=== PATIENT | female | born 1935 | race Caucasian/White ===

== ENCOUNTER 2016-10-25 11:10 | Emergency (ER) | payer MEDICARE ==
[~2016-10-25] VITALS: Ht 152.4 cm; Wt 62.0 kg
[~2016-10-25 11:10] MED LIST: CALCCHW25 PO; OXYC1SOL5 PO; RIVA10 PO; TAB-TAB PO; Z.0.COMMODE-3:1; Z.0.WALKERFRONT
[2016-10-25 11:19] VITALS: BP 157/95; PULSE 120; RESP 20; TEMP 98.3; O2SAT 96
--- NOTE | 2016-10-25 11:31 | PD ---
HPI Chief Complaint: Injury Time Seen by Provider: 11:22 Travel History International Travel<30 days: No Contact w/Intl Traveler<30days: No Traveled to known affect area: No History of Present Illness HPI 81-year-old female with chief complaint of left lateral ankle pain since last night. Patient reports while walking she ran into the leg of a chair which caused her to twist the ankle and she fell to the ground. She denies head injury or loss of consciousness. She reports the pain is localized to the left lateral ankle, nonradiating, aching, worse with weightbearing and movement, relieved with rest, severity 4/10. she denies numbness/tingling/weakness of the extremity. She denies any other injury. PFSH Past Medical History Arthritis: Yes Blood Disorders: No Cancer: No Cardiovascular Problems: No Diabetes: No Diminished Hearing: No Endocrine: No Genitourinary: No Hepatitis: No Hiatal Hernia: Yes Immune Disorder: No Musculoskeletal: Yes (ARTHRITIS, OSTEOPOROSIS) Neurologic: No Psychiatric: No Reproductive: No Respiratory: No Thyroid Disease: No Past Surgical History Abdominal Surgery: Yes (APPY) AICD: No Gynecologic Surgery: Yes ( RIGHT OVARIAN CYSTECTOMY) Joint Replacement: No Pacemaker: No Social History Alcohol Use: Yes (1-2 SERA DAILY) Tobacco Use: No Substance Use: No Allergies-Medications (Allergen,Severity, Reaction): Coded Allergies: Caseinates (Unverified Allergy, Severe, SEVERE DIARRHEA, 02/10/15) Dairy (Verified Allergy, Severe, 02/21/15) CASEIN INTOLERANCE Gluten (Verified Allergy, Severe, diarrhea, 02/21/15) Neosporin (Verified Allergy, Mild, 02/10/15) Processed Meats (Verified Allergy, Mild, 02/10/15) Reported Meds & Prescriptions Reported Meds & Active Scripts Active Review of Systems Except as stated in HPI: all other systems reviewed are Neg General / Constitutional: No: Fever Eyes: No: Visual changes HENT: No: Headaches Cardiovascular: No: Chest Pain or Discomfort Respiratory: No: Shortness of Breath Gastrointestinal: No: Abdominal Pain Genitourinary: No: Dysuria Musculoskeletal: Positive: Pain (left ankle) Skin: No Rash Neurologic: No: Weakness Physical Exam Narrative GENERAL: Well-nourished, well-developed patient. SKIN: Focused skin assessment warm/dry. HEAD: Normocephalic. EYES: No scleral icterus. No injection or drainage. NECK: Supple, trachea midline. No JVD or lymphadenopathy. CARDIOVASCULAR: Regular rate and rhythm without murmurs, gallops, or rubs. RESPIRATORY: Breath sounds equal bilaterally. No accessory muscle use. GASTROINTESTINAL: Abdomen soft, non-tender, nondistended. MUSCULOSKELETAL: No cyanosis. LLE: Notable swelling to the left lateral malleolus, no deformity, the ankle is stable, normal sensation, 2+ distal pulses. BACK: Nontender without obvious deformity. No CVA tenderness. Data Data Last Documented VS Vital Signs Date Time Temp Pulse Resp B/P Pulse Ox O2 Delivery O2 Flow Rate FiO2 10/25/16 11:19 98.3 120 20 157/95 96 Orders Ankle, Complete ([id number]) (10/25/16 ) [facility] Medical Decision Making Medical Screen Exam Complete: Yes Emergency Medical Condition: Yes Differential Diagnosis distal fibular fx, ankle sprain, contusion Narrative Course 81-year-old female with chief complaint of left ankle pain. Patient reports she contused the area on the leg of the chair causing her to twist the ankle and fall to the ground. She denies head injury or loss consciousness. She denies any other pain. The extremity is neurovascularly intact. X-ray pending X-ray left ankle: Subtle distal fibular fracture Left lower extremity splinted: Splint check reveals the extremity is neurovascular intact and in good alignment. Patient has scheduled appointment with orthopedic doctor on Friday. She is instructed to ice and elevate the extremity. She declined crutches and will use a cane for evaluation. She declined prescription for pain medication stating she will just take Tylenol. Return precautions discussed. Patient and family verbalized understanding and agreed with plan. Diagnosis Primary Impression: Fracture of distal fibula Qualified Code: S82.832A - Closed fracture of distal end of left fibula, unspecified fracture morphology, initial encounter Referrals: Orthopedist Additional Instructions: Keep splint in place until follow-up with orthopedic doctor. Ice and elevate the extremity. Take [id number] Tylenol or Motrin for pain. Return to the emergency department immediately if he develops severe pain, change in color or sensation of the extremity. Disposition: 01 DISCHARGE HOME Condition: Stable Rhoda Dave Oct 25, 2016 11:31
--- NOTE | 2016-10-25 11:43 | RADRPT ---
EXAM DATE/TIME: 10/25/2016 11:26 [place] COMPARISON: No previous studies available for comparison. INDICATIONS : Left ankle pain after hitting ankle on chair MEDICAL HISTORY : Previous left ankle sprain SURGICAL HISTORY : None. ENCOUNTER: Initial ACUITY: 2 days PAIN SCORE: 7/10 LOCATION: Left lateral ankle FINDINGS: There is very fracture of the fibula above the tibial plafond with soft tissue swelling on both sides of the ankle. There is probably greenstick fracture of the medial malleolus as well. Posterior lip of the tibia is intact. CONCLUSION: Fracture as described above. Josh Robles MD FACR on October 25, 2016 at 11:40 Board Certified Radiologist. This report was verified electronically.
[2016-10-25 12:17] VITALS: BP 157/75
== END 2016-10-25 12:33 | disposition home or self-care (01) ==
LOC: PHEFT 11:10
DX: S82.832A Other fracture of upper and lower end of left fibula, initial encounter for closed fracture (principal); Z87.39 Personal history of other diseases of the musculoskeletal system and connective tissue; W18.39XA Other fall on same level, initial encounter; W22.03XA Walked into furniture, initial encounter; X50.1XXA Overexertion from prolonged static or awkward postures, initial encounter
CPT/HCPCS: 29515; 73610

== ENCOUNTER 2017-09-26 12:14 | Observation (INO) ==
[2017-09-26] MEDS ORDERED: Sod Chloride 0.9% Inj 1,000 ML IV.CONT SCH (15:45)
--- NOTE | 2017-09-26 15:49 | ED ---
HPI General Chief Complaint: Medical Clearance Stated Complaint: Medical Clearance Time Seen by Provider: 09/26/17 14:06 Source: patient Mode of arrival: ambulatory Limitations: no limitations History of Present Illness HPI narrative: 82-year-old female complains of epigastric discomfort and nausea vomiting. Patient has history of recurrent esophageal stricture. Patient required endoscopy with dilatation procedure in the past. Patient states that the last procedure was about 4 years ago. Patient started having problem swallowing solid food recently. Patient states that his symptoms started about 5 6 days ago. Patient states that she has been vomiting solid food after she ate. Patient has been able to keep liquids down. Patient states that she has some mild epigastric discomfort. Patient denies any chest pain or shortness of breath. Patient denies any dysuria frequency. Patient denies any fever chills. Patient denies any back pain. complaint: abdominal pain Onset (ago): day(s) Pain Consistency: intermittent Location: epigastric Severity: mild Severity scale (1-10): 3 Quality: cramping Radiation: none Migration to: no migration Relieving factors: nothing Exacerbating factors: eating Associated symptoms: nausea and vomiting Related Data Patient : No Previous Rx's Medication Instructions Recorded pantoprazole 40 mg PO DAILY tab 09/27/17 Allergies Allergy/AdvReac Type Severity Reaction Status Date / Time casein Allergy Severe SEVERE Verified 09/26/17 12:28 DIARRHEA gluten Allergy Severe diarrhea Verified 09/26/17 12:28 lactose Allergy Severe Diarrhea Verified 09/26/17 12:28 bacitracin Allergy Mild Diarrhea Verified 09/26/17 12:28 gramicidin D Allergy Mild Diarrhea Verified 09/26/17 12:28 neomycin Allergy Mild Diarrhea Verified 09/26/17 12:28 polymyxin B Allergy Mild Diarrhea Verified 09/26/17 12:28 Review of Systems Except as stated in HPI: all other systems reviewed are negative PMFSH Medical History Medical History Esophageal dilatation (Acute) Surgical History Surgical History History of hip replacement (Acute) Hx of vertebral fracture repair (Acute) Social History Social History Substance History: No History of Abuse Second Hand Smoke Exposure: No Smoking Status: Former smoker Tobacco Type: Cigarettes How Often Do You Have a Drink Containing Alcohol: 4 or more times a week Recent Travel in [facility] within the Last 8 Weeks: No Recent Out of Country Travel within the Last 8 Weeks: No Immunization History Tetanus Immunization: Unsure Hx Influenza Vaccine This Season: Yes Exam Narrative Exam Narrative: GENERAL: Well-nourished, well-developed patient. SKIN: Focused skin assessment warm/dry. HEAD: Normocephalic. EYES: No scleral icterus. No injection or drainage. NECK: Supple, trachea midline. No JVD or lymphadenopathy. CARDIOVASCULAR: Regular rate and rhythm without murmurs, gallops, or rubs. RESPIRATORY: Breath sounds equal bilaterally. No accessory muscle use. GASTROINTESTINAL: Abdomen soft, non-tender, nondistended. MUSCULOSKELETAL: No cyanosis, or edema. BACK: Nontender without obvious deformity. No CVA tenderness. Neurologic exam normal. Course Initial Documented Vital Signs Temperature 97.8 F 09/26/17 12:23 Pulse Rate 88 09/26/17 12:23 Respiratory Rate 18 09/26/17 12:23 Blood Pressure 189/92 H 09/26/17 12:23 Pulse Oximetry 99 09/26/17 12:23 Last Documented Vital Signs Temperature 98.1 F 09/27/17 11:21 Pulse Rate 78 09/27/17 11:21 Respiratory Rate 19 09/27/17 11:21 Blood Pressure 142/87 H 09/27/17 11:21 Pulse Oximetry 97 09/27/17 11:21 Medical Decision Making MDM Narrative Medical decision making narrative: 82-year-old female with inability to swallow solid food for the past 5- 6 days. History of esophageal stricture that required dilatation in the past. Patient was seen by personal physician and referred to ED for admission and upper GI endoscopy for esophageal dilatation procedure. Normal saline solution 1 25 cc an hour. N.p.o. Differential Diagnosis Differential Diagnosis: Differential diagnosis including esophageal stricture, food bolus impaction. Lab Data Result diagrams: 09/26/17 15:50 09/26/17 15:50 Lab Results 09/26/17 09/26/17 09/26/17 Range/Units 15:50 15:50 15:50 WBC 5.1 (4.0-11.0) th/mm3 RBC 4.31 (4.00-5.30) mil/mm3 Hgb 14.3 (11.6-15.3) gm/dL Hct 42.1 (35.0-46.0) % MCV 97.7 (80.0-100.0) fL MCH 33.3 (27.0-34.0) pg MCHC 34.0 (32.0-36.0) % RDW 13.0 (11.6-17.2) % Plt Count 189 (150-450) th/mm3 MPV 10.3 (7.0-11.0) fL Neut % (Auto) 67.5 (16.0-70.0) % Lymph % (Auto) 18.2 (9.0-44.0) % Louisa % (Auto) 12.1 H (0.0-8.0) % Eos % (Auto) 0.9 (0.0-4.0) % Baso % (Auto) 1.3 (0.0-2.0) % Neut # (Auto) 3.4 (1.8-7.7) th/mm3 Lymph # (Auto) 0.9 L (1.0-4.8) th/mm3 Louisa # (Auto) 0.6 (0.0-0.9) th/mm3 Eos # (Auto) 0.0 (0.0-0.4) th/mm3 Baso # (Auto) 0.1 (0.0-0.2) th/mm3 WBC Differential . Differential Comment Auto diff final PT 10.4 (9.8-11.6) sec INR 1.0 Ratio APTT 23.8 L (24.3-30.1) sec Sodium 139 (136-145) meq/L Potassium 4.6 (3.5-5.1) meq/L Chloride 103 (98-107) meq/L Carbon Dioxide 26.4 (21.0-32.0) meq/L Anion Gap 10 (5-15) meq/L BUN 8 (7-18) mg/dL Creatinine 0.80 (0.50-1.00) mg/dL Estimated GFR 69 L (>89) mL/min Random Glucose 92 (74-106) mg/dL Calcium 9.3 (8.5-10.1) mg/dL Total Bilirubin 0.9 (0.2-1.0) mg/dL AST 32 (15-37) U/L ALT 34 (10-53) U/L Alkaline Phosphatase 94 (45-117) U/L Total Protein 7.3 (6.4-8.2) g/dL Albumin 3.8 (3.4-5.0) g/dL Lipase 78 (73-393) U/L Urine Color (Yellw/Straw) Urine Clarity (Clear) Urine pH (5.0-8.5) Ur Specific [place] (1.002-1.035) Urine Protein (Neg-Trace) mg/dL Urine Glucose (UA) (Negative) mg/dL Urine Ketones (Negative) mg/dL Urine Occult Blood (Negative) Urine Nitrate (Negative) Urine Bilirubin (Negative) Urine Urobilinogen (Less than 2) mg/dL Ur Leukocyte Esterase (Negative) Urine RBC (0-3) /hpf Urine WBC (0-5) /hpf Ur Squamous Epith Cells (0-5) /hpf Ur Transition Epith Cell (None) /hpf Urine Bacteria (None) /hpf Hyaline Casts (0-3) /lpf Urine Mucus (Occasional) /lpf Micro UA Comment Urine Culture Comments 09/26/17 Range/Units 16:57 WBC (4.0-11.0) th/mm3 RBC (4.00-5.30) mil/mm3 Hgb (11.6-15.3) gm/dL Hct (35.0-46.0) % MCV (80.0-100.0) fL MCH (27.0-34.0) pg MCHC (32.0-36.0) % RDW (11.6-17.2) % Plt Count (150-450) th/mm3 MPV (7.0-11.0) fL Neut % (Auto) (16.0-70.0) % Lymph % (Auto) (9.0-44.0) % Louisa % (Auto) (0.0-8.0) % Eos % (Auto) (0.0-4.0) % Baso % (Auto) (0.0-2.0) % Neut # (Auto) (1.8-7.7) th/mm3 Lymph # (Auto) (1.0-4.8) th/mm3 Louisa # (Auto) (0.0-0.9) th/mm3 Eos # (Auto) (0.0-0.4) th/mm3 Baso # (Auto) (0.0-0.2) th/mm3 WBC Differential Differential Comment PT (9.8-11.6) sec INR Ratio APTT (24.3-30.1) sec Sodium (136-145) meq/L Potassium (3.5-5.1) meq/L Chloride (98-107) meq/L Carbon Dioxide (21.0-32.0) meq/L Anion Gap (5-15) meq/L BUN (7-18) mg/dL Creatinine (0.50-1.00) mg/dL Estimated GFR (>89) mL/min Random Glucose (74-106) mg/dL Calcium (8.5-10.1) mg/dL Total Bilirubin (0.2-1.0) mg/dL AST (15-37) U/L ALT (10-53) U/L Alkaline Phosphatase (45-117) U/L Total Protein (6.4-8.2) g/dL Albumin (3.4-5.0) g/dL Lipase (73-393) U/L Urine Color Cheli (Yellw/Straw) Urine Clarity Cloudy H (Clear) Urine pH 6.0 (5.0-8.5) Ur Specific [place] 1.024 (1.002-1.035) Urine Protein 30 H (Neg-Trace) mg/dL Urine Glucose (UA) Negative (Negative) mg/dL Urine Ketones 20 (Negative) mg/dL Urine Occult Blood Negative (Negative) Urine Nitrate Negative (Negative) Urine Bilirubin Negative (Negative) Urine Urobilinogen 2.0 H (Less than 2) mg/dL Ur Leukocyte Esterase Moderate H (Negative) Urine RBC 8 H (0-3) /hpf Urine WBC 102 H (0-5) /hpf Ur Squamous Epith Cells 10 (0-5) /hpf Ur Transition Epith Cell 4 (None) /hpf Urine Bacteria Few H (None) /hpf Hyaline Casts 36 (0-3) /lpf Urine Mucus Many H (Occasional) /lpf Micro UA Comment Culture indicated Urine Culture Comments Culture indicated Imaging Data Radiologist's impression: ITS Impressions Chest X-Ray 09/26/17 15:37 CONCLUSION: No acute intrathoracic disease. No new or significant changes compared to the prior study. Discharge Plan Discharge Disposition Patient Disposition: 01 Discharge Home Discharge Condition Condition: Good Discharge Order Discharge Orders: Discharge Order (Routine); Ordered 09/27/17 Ordered By: Roc Monroe [facility] Clear for Discharge (Routine); Ordered 09/27/17 Ordered By: Kaveh Alonzo Discharge Details Anticipated Discharge Date: 09/27/17 Discharge Comment: May discharge home after lunch if tolerates soft diet Discharge Problem: Acute esophageal obstruction Physicians Team ED Provider: Gomez Arellano Primary Care Provider: Roc Monroe Attending Provider: Roc Monroe Other Providers: Federico Nelson Status ED Status: Left Department Discharge Information Discharge Date/Time: 09/26/17 16:50
[2017-09-26 16:15] LABS: Baso # (Auto) 0.1 th/mm3 (0.0-0.2); Baso % (Auto) 1.3 % (0.0-2.0); Eos % (Auto) 0.9 % (0.0-4.0); Hematocrit 42.1 % (35.0-46.0); Hemoglobin 14.3 gm/dL (11.6-15.3); Lymph # (Auto) 0.9 th/mm3 (1.0-4.8); Lymph % (Auto) 18.2 % (9.0-44.0); Mean Corpuscular Hemoglobin 33.3 pg (27.0-34.0); Mean Corpuscular Volume 97.7 fL (80.0-100.0); Mean Platelet Volume 10.3 fL (7.0-11.0); Mono # (Auto) 0.6 th/mm3 (0.0-0.9); Mono % (Auto) 12.1 % (0.0-8.0); Neut # (Auto) 3.4 th/mm3 (1.8-7.7); Neut % (Auto) 67.5 % (16.0-70.0); Platelet Count 189 th/mm3 (150-450); Red Blood Count 4.31 mil/mm3 (4.00-5.30); White Blood Count 5.1 th/mm3 (4.0-11.0)
[2017-09-26 16:24] LABS: Activated Partial Thrombo Time 23.8 sec (24.3-30.1); Prothrombin Time 10.4 sec (9.8-11.6)
--- NOTE | 2017-09-26 16:30 | XR ---
EXAM DATE: 09/26/2017 4:24 PM EDT AGE/SEX: 82 years / Female INDICATIONS: Shortness of breath. Having surgery on cardiac shpincter muscle. CLINICAL DATA: This is the patient's initial encounter. Patient reports that signs and symptoms have been present for 1 day and indicates a pain score of 0/10. MEDICAL/SURGICAL HISTORY: None. None. COMPARISON: POI, XR CHEST UPRIGHT, SINGLE VIEW, 04/18/2017. . FINDINGS: A single AP view of the chest demonstrates the lungs to be symmetrically aerated without evidence of mass, infiltrate or effusion. The cardiomediastinal contours are unremarkable. Osseous structures a re intact. There is evidence of previous kyphoplasty. CONCLUSION: No acute intrathoracic disease. No new or significant changes compared to the prior study. Electronically signed by: Evan Prather MD 09/26/2017 4:29 PM EDT
[2017-09-26 16:37] LABS: Alanine Aminotransferase 34 U/L (10-53); Albumin 3.8 g/dL (3.4-5.0); Anion Gap 10 meq/L (5-15); Aspartate Aminotransferase 32 U/L (15-37); Blood Urea Nitrogen 8 mg/dL (7-18); Calcium 9.3 mg/dL (8.5-10.1); Carbon Dioxide 26.4 meq/L (21.0-32.0); Chloride 103 meq/L (98-107); Glomerular Filtration Rate 69 mL/min (>89); Glucose,Random 92 mg/dL (74-106); Lipase 78 U/L (73-393); Potassium 4.6 meq/L (3.5-5.1); Sodium 139 meq/L (136-145)
[2017-09-26 16:39] LABS: Alkaline Phosphatase 94 U/L (45-117); Total Protein 7.3 g/dL (6.4-8.2)
--- NOTE | 2017-09-26 16:39 | MH ---
cc: Roc Monroe MD DATE OF ADMISSION: 09/26/2017 DATE OF ADMISSION: 09/26/2017. ADMITTING DIAGNOSES Dysphagia, inability to swallow solids. HISTORY OF PRESENT ILLNESS: This 82-year-old white female, well known to the undersigned physician, has a history of esophageal strictures. She has undergone esophageal dilation in the past. The patient contacted the undersigned physician on the day of admission stating that she was unable to swallow any solids at all. She had tried to eat breakfast and regurgitation all of the food within 15 minutes. She had no nausea, no abdominal pain. She had no fever, chills, night sweats, cough. She states her bowels have been moving well without any diarrhea, constipation, melena or hematochezia. She denies any hematemesis or coffee-ground emesis. The patient was instructed to report to the emergency department for further evaluation. PAST MEDICAL HISTORY: Significant for history of hemorrhoids. She had a ruptured ovarian cyst in 1954. She has a history of GERD with hiatal hernia and esophageal stricture requiring dilation in the past. She has osteoporosis with history of vertebral compression fractures T8, T10, T12 and L1. She has a history of adenomatous colonic polyps. Her last colonoscopy was in 2013. 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 PAST SURGICAL HISTORY: Positive for kyphoplasties at T10, T12 and L1, status post bilateral cataract removal with lens implant, status post bilateral breast reduction surgery in 2009, history of blepharoplasty in 2010, history of facial cosmetic surgery in 2010, and left total hip replacement in 2014. CURRENT MEDICATIONS: She has no current prescription medications, but takes Vitamin D 2000 international units daily and calcium 500 mg twice daily. ALLERGIES: ACIPHEX which caused diarrhea and NEOSPORIN which caused a rash. FAMILY HISTORY: Noncontributory. SOCIAL HISTORY: She is . She lives alone. She is a former smoker, but has not smoked in many years. She consumes alcohol on a social basis. REVIEW OF SYSTEMS: Negative except as outlined above. PHYSICAL EXAMINATION: VITAL SIGNS: In the emergency department, her blood pressure was 168/80 with a heart rate of 71, respirations 15, oxygen saturation 100% on room air. GENERAL: This is a well-nourished, well-developed, elderly, white female lying on a stretcher in no acute distress. HEENT: Pupils equal, round, reactive to light. Extraocular movements are intact. Sclerae are anicteric. Conjunctivae pink. Mouth and throat reveal moist mucous membranes. No erythema or exudates. Dentition is good. NECK: Supple without lymphadenopathy, JVD, bruits or thyromegaly. CARDIOVASCULAR: Regular rate and rhythm without murmurs, rubs or gallops. LUNGS: Clear to auscultation without wheezes, rhonchi, rales. ABDOMEN: Soft, nontender, nondistended with bowel sounds present. No mass palpable. No hepatosplenomegaly. GENITOURINARY AND RECTAL: Deferred. LOWER EXTREMITIES: Reveal no appreciable edema or calf tenderness. SKIN: Warm and dry. NEUROLOGIC: Nonfocal. LABORATORY DATA: CMP, CBC, EKG are pending. ASSESSMENT AND PLAN: 1. This 82-year-old white female who presents with recurrent dysphagia, most likely due to a recurrent esophageal stricture. I have consulted Dr. Nelson from Gastroenterology. He will be seeing the patient today and the patient will likely undergo esophagogastroduodenoscopy with dilation due to the severity of her dysphagia. She will be placed on intravenous fluids and to have nothing by mouth for now. We will follow up preoperative laboratory studies and address any abnormalities if needed. I have explained the plan of care to the patient who expressed understanding and agreement. MD YANELI Maldonado/KELVIN , 04:16 PM , 04:37 PM
[2017-09-26 18:02] LABS: Bacteria,Urine Few /hpf; Bilirubin,Urine Negative (Negative); Clarity,Urine Cloudy (Clear); Color,Urine Amber (Yellw/Straw); Glucose,Urine (UA) Negative (Negative); Hyaline Casts,Urine 36 /lpf (0-3); Leukocyte Esterase,Urine Moderate (Negative); Mucus,Urine Many /lpf (Occasional); Nitrite,Urine Negative (Negative); Specific Gravity,Urine 1.024 (1.002-1.035); Squamous Epithelial Cell,Urine 10 /hpf (0-5); Transitional Epi Cells,Urine 4 /hpf
--- NOTE | 2017-09-26 18:10 | MB ---
cc: Federico Nelson MD DATE: 09/26/2017 REFERRING PHYSICIAN: Dr. Roc Monroe. REASON FOR CONSULTATION: Dysphagia. HISTORY OF PRESENT ILLNESS: Irina is a pleasant 82-year-old female who states she has had problems with dysphagia off and on for several years. She states about every 2 or 3 years, she needs a dilation. She states she has to be very careful what she eats. She states the problem has been getting worse and this morning, she had difficulty eating her breakfast and she had to regurgitate all of her food within 15 minutes. She currently is able to swallow liquids without any difficulty and does not have any foreign body sensation. She has no pain and is in no distress. SOCIAL HISTORY: She is . She lives by herself. She has 2 adult children. She smoked briefly for about 10 years in her early 20s and 30s. She has 2 glasses of red wine every night with dinner. PAST MEDICAL HISTORY: Remarkable for a ruptured ovarian cyst in 1954, history of GERD with a hiatal hernia and esophageal stricture, history of hemorrhoids, and history of vertebral compression fracture at T10, T12 and L1. She has had a hip replacement. She has had history of adenomatous colon polyps with her last colonoscopy in 2013. She has had kyphoplasties, bilateral cataract removal with lens implants, bilateral breast reduction surgery in 2009. She had blepharoplasty 2010, facial cosmetic surgery in 2010 and the left total hip replacement was in 2014. MEDICATIONS: She is on no prescription medications, but does take vitamin D and a calcium supplement daily. ALLERGIES: SHE IS ALLERGIC TO ACIPHEX, WHICH CAUSES DIARRHEA AND NEOSPORIN, WHICH CAUSES A RASH. FAMILY HISTORY: No family history of esophageal cancer. REVIEW OF SYSTEMS: She states she is in good health, other than her difficulty swallowing. She states she does not get heartburn, but has had it in the past. She manages it with diet. The remainder of the 12-point review of systems was negative. PHYSICAL EXAMINATION: GENERAL: Reveals a well-developed female in no acute distress. VITAL SIGNS: Her blood pressure is 168/80, pulse 71, respirations 15 and nonlabored, temperature is 97.8. HEENT: Sclerae are anicteric. NECK: Without masses. LUNGS: Clear to auscultation. HEART: Sounds are regular. ABDOMEN: Soft and nontender. No masses. No organomegaly. EXTREMITIES: No cyanosis, clubbing or edema. SKIN: Warm and dry. NEUROLOGIC: She was alert and well oriented with a pleasant affect and no gross motor deficits. LABORATORY DATA: CBC was unremarkable. INR is 1.0. Serum chemistries were also unremarkable. IMAGING STUDIES: Chest x-ray was a single AP view of the chest, which was essentially unremarkable. IMPRESSION: Dysphagia. The patient with chronic dysphagia, apparently due to a benign esophageal stricture. She points to the distal esophagus as to where the food gets hung up. She has not been able to tolerate any solid food and is requesting a dilation. There is no evidence she has any acute food impaction at this time as she is able to drink fluids without difficulty and is handling her saliva well. PLAN: I offered Irina an outpatient EGD with dilation if she preferred to go home, but she would rather stay and have it done here. Dr. Rosales is recreation worker tomorrow for our group and has agreed to perform an EGD with dilation for the patient. The OR has been contacted to schedule this. I reviewed the risks, as well as benefits and alternatives of the procedure with Irina. Informed consent was obtained. In the future, I suggested she call us when it first starts to bother her, as we could dilate her electively in the outpatient setting. Thank you for this consultation. MD JENNIFER Hernandez/DAVEY , 05:39 PM , 06:08 PM
[2017-09-27] MEDS ORDERED: Lidocaine PF 1% Inj 5 ML Syringe INFILTRATN ONE (04:09)
--- NOTE | 2017-09-27 09:37 | MR ---
cc: Kaveh Alonzo MD DATE: 09/27/2017 DATE OF PROCEDURE: 09/27/2017 INDICATIONS FOR PROCEDURE: Patient with known esophageal stricture in the past, having recurring dysphagia at this time. EGD is being performed to evaluate and treat the problem. Photographs and biopsies were taken. Premedication was administered by Anesthesiology. Monitoring was accomplished with pulse oximeter, EKG, blood pressure monitor. DETAILS OF PROCEDURE: After informed consent was obtained, and the procedure, risks and benefits were explained, including the risks of bleeding, sepsis, perforation, and risks of anesthesia, the patient was placed in left lateral position. The video endoscope was inserted into the esophagus under direct visualization. The main esophageal body throughout was normal. At the EG junction, a fairly tight stricture was noted. We were able to traverse this with the scope itself with some resistance. There was tightness noted at the EG junction because of the stricture. In a retroflexed view, the cardia and fundus were examined. The hiatal hernia, moderately large size, was noted. No masses were seen. The EG junction was biopsied twice. The stomach was further examined. The antrum itself revealed antral gastritis of a mild degree. This was biopsied to rule out pylori. Once again retroflexed views did not reveal any obvious masses. The pylorus was patent. The first, second and third portion of the duodenum were unremarkable. A wire was then placed in the distal antrum and Savary-Angi dilators 11, 12.8 and 14 mm were passed successfully, each time with resistance. The last of which had the least resistance. It was felt prudent to proceed with 1 more dilation at 15 mm and this also was noted to be passed with less resistance as well. Inspection of the area failed to reveal any obvious trauma to the body of the esophagus. The EG junction stricture appeared to be dilated. There was minimal heme noted in the proximal stomach. No active bleeding was seen. The scope was withdrawn. The patient tolerated the procedure well. No immediate complications were noted. 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 This was dilated from 11 mm to 15 mm successfully. Biopsies of the stomach and the antral region and the GE junction were obtained for sampling. PLAN: Would start the patient on a full liquid diet, advance to soft solids as tolerated with continued PPI therapy and followup with clinic as an outpatient after discharge if she remains stable. We will discuss with the patient as well. Biopsies will be followed up as well. MD TAMAR Becker/DAVEY , 08:53 AM , 09:36 AM
--- NOTE | 2017-09-27 10:35 | ECG ---
Date Performed: 09/26/2017 Time Performed: 15:54:51 PTAGE: 82 years EKG: Sinus rhythm NORMAL ECG PREVIOUS TRACING : 09/25/2006 18.35 No significant change from previous tracing noted. DOCTOR: Dawson Soriano Interpretating Date/Time 09/27/2017 10:34:25
--- NOTE | 2017-09-27 11:13 | P.PN ---
Subjective Interval history: The patient underwent EGD with dilation earlier today. She is tolerating full liquid diet. Denies any dysphagia or abdominal pain. Active Medications Generic Name Dose Route Start Last Admin Trade Name Coretta PRN Reason Stop Dose Admin Miscellaneous Information 1 each 09/27/17 08:52 Misc Nursing Information OTHER 09/28/17 08:51 UNSCH PRN SEE LABEL COMMENTS Sodium Chloride 2 ml 09/26/17 15:37 09/27/17 02:32 Ns Flush IV.FLUSH 2 ml PRN PRN Administration FLUSH AFTER USING IV ACCESS Physical Exam Vital signs: Vital Signs 09/26/17 12:23 09/26/17 16:00 09/26/17 17:50 Temperature 97.8 F 98.7 F Pulse Rate 88 71 69 Respiratory Rate 18 15 18 Blood Pressure 189/92 H 168/80 H 153/67 H Pulse Oximetry 99 100 98 09/26/17 19:52 09/26/17 23:43 09/27/17 04:00 Temperature 98.4 F 98.4 F Pulse Rate 93 H 79 Respiratory Rate 16 17 14 Blood Pressure 150/73 H 157/72 H Pulse Oximetry 93 L 94 L 09/27/17 04:09 09/27/17 08:00 09/27/17 08:50 Temperature 97.9 F 97.9 F 97.8 F Pulse Rate 84 68 102 H Respiratory Rate 18 16 18 Blood Pressure 130/66 140/77 112/73 Pulse Oximetry 97 98 95 09/27/17 09:00 09/27/17 09:05 09/27/17 09:15 Temperature 97.6 F Pulse Rate 95 H 91 H Respiratory Rate 16 Blood Pressure 113/69 120/73 Pulse Oximetry 99 97 95 09/27/17 09:20 Temperature Pulse Rate Respiratory Rate Blood Pressure Pulse Oximetry 95 Intake & Output 09/26/17 09/27/17 09/27/17 18:59 06:59 18:59 Intake Total 250 / 250 Balance 250 / 250 Weight 139 lb 138 lb 15.67 oz Intake: Anesthesia Amount 250 / 250 Other: # Voids 1 - Constitutional no acute distress - Routine Neck Exam Present: supple - Routine Respiratory Exam Present: CTA bilaterally - Routine Cardiovascular Exam Present: RRR - Routine Abdominal Exam Present: soft, normoactive bowel sounds - Detailed Abdominal Exam Comments: Nondistended, no masses Results - Labs CBC & Chem 7: 07/06/18 15:50 09/26/17 15:50 Laboratory Results - last 24 hr 09/26/17 09/26/17 09/26/17 15:50 15:50 15:50 WBC 5.1 RBC 4.31 Hgb 14.3 Hct 42.1 MCV 97.7 MCH 33.3 MCHC 34.0 RDW 13.0 Plt Count 189 MPV 10.3 Neut % (Auto) 67.5 Lymph % (Auto) 18.2 [place] % (Auto) 12.1 H Eos % (Auto) 0.9 Baso % (Auto) 1.3 Neut # (Auto) 3.4 Lymph # (Auto) 0.9 L [place] # (Auto) 0.6 Eos # (Auto) 0.0 Baso # (Auto) 0.1 WBC Differential . Differential Comment Auto diff final PT 10.4 INR 1.0 APTT 23.8 L Sodium 139 Potassium 4.6 Chloride 103 Carbon Dioxide 26.4 Anion Gap 10 BUN 8 Creatinine 0.80 Estimated GFR 69 L Random Glucose 92 Calcium 9.3 Total Bilirubin 0.9 AST 32 ALT 34 Alkaline Phosphatase 94 Total Protein 7.3 Albumin 3.8 Lipase 78 Urine Color Urine Clarity Urine pH Ur Specific [place] Urine Protein Urine Glucose (UA) Urine Ketones Urine Occult Blood Urine Nitrate Urine Bilirubin Urine Urobilinogen Ur Leukocyte Esterase Urine RBC Urine WBC Ur Squamous Epith Cells Ur Transition Epith Cell Urine Bacteria Hyaline Casts Urine Mucus Micro UA Comment Urine Culture Comments 09/26/17 16:57 WBC RBC Hgb Hct MCV MCH MCHC RDW Plt Count MPV Neut % (Auto) Lymph % (Auto) [place] % (Auto) Eos % (Auto) Baso % (Auto) Neut # (Auto) Lymph # (Auto) [place] # (Auto) Eos # (Auto) Baso # (Auto) WBC Differential Differential Comment PT INR APTT Sodium Potassium Chloride Carbon Dioxide Anion Gap BUN Creatinine Estimated GFR Random Glucose Calcium Total Bilirubin AST ALT Alkaline Phosphatase Total Protein Albumin Lipase Urine Color Cheli Urine Clarity Cloudy H Urine pH 6.0 Ur Specific [place] 1.024 Urine Protein 30 H Urine Glucose (UA) Negative Urine Ketones 20 Urine Occult Blood Negative Urine Nitrate Negative Urine Bilirubin Negative Urine Urobilinogen 2.0 H Ur Leukocyte Esterase Moderate H Urine RBC 8 H Urine WBC 102 H Ur Squamous Epith Cells 10 Ur Transition Epith Cell 4 Urine Bacteria Few H Hyaline Casts 36 Urine Mucus Many H Micro UA Comment Culture indicated Urine Culture Comments Culture indicated - Imaging Impressions Chest X-Ray 09/26/17 15:37 CONCLUSION: No acute intrathoracic disease. No new or significant changes compared to the prior study. Assessment and Plan - Assessment (1) Acute esophageal obstruction Code(s): K22.2 - Esophageal obstruction Status: Acute Plan: The patient is status post EGD with dilation. I have spoken with Dr. Alonzo who performed the procedure earlier this morning. He states that if patient tolerates soft diet for lunch, she can be discharged home later today. Patient will need to be on a PPI. Will begin pantoprazole 40 mg daily.
--- NOTE | 2017-09-27 11:29 | P.DS ---
Date of admission: 09/26/17 15:53 Primary care physician: Roc Monroe MD Attending physician on discharge: Roc Monroe Anticipated date of discharge: 09/27/17 Brief History from admission: This 82-year-old white female presented with dysphasia of solid foods. She has a history of esophageal strictures in the past and underwent dilation. The patient states that she has been unable to completely swallow solid food. It feels like it sticks in her esophagus and she has been regurgitating solid food. She is able to take liquids. She contacted the undersigned physician who recommended she report to the emergency department. DS: Diagnosis - Discharge Diagnosis (1) Acute esophageal obstruction Status: Acute Diagnosis: Principal DS: Summary Hospital Course: The patient was placed in observation. She underwent EGD with dilation performed by Dr. Kaveh Alonzo on 09/27/17. Findings during procedure included distal esophageal stricture which was successfully dilated to 15 mm. The patient tolerated the procedure well. She tolerated a full liquid diet and was advanced to a soft diet. Patient tolerated diet and was discharged home in good condition with instructions to follow-up with the undersigned physician in 1 week and with gastroenterology in 2-3 weeks. The patient would be placed on pantoprazole 40 mg daily and a soft diet until her follow-up with gastroenterology. - Time Spent with Patient Total time spent providing and/or coordinating discharge services: Less than 30 minutes - Quality: VTE Deep Vein Thrombosis/Pulmonary Embolism Present on Admission: No Exam Vital signs: Vital Signs 09/26/17 12:23 09/26/17 16:00 09/26/17 17:50 Temperature 97.8 F 98.7 F Pulse Rate 88 71 69 Respiratory Rate 18 15 18 Blood Pressure 189/92 H 168/80 H 153/67 H Pulse Oximetry 99 100 98 09/26/17 19:52 09/26/17 23:43 09/27/17 04:00 Temperature 98.4 F 98.4 F Pulse Rate 93 H 79 Respiratory Rate 16 17 14 Blood Pressure 150/73 H 157/72 H Pulse Oximetry 93 L 94 L 09/27/17 04:09 09/27/17 08:00 09/27/17 08:50 Temperature 97.9 F 97.9 F 97.8 F Pulse Rate 84 68 102 H Respiratory Rate 18 16 18 Blood Pressure 130/66 140/77 112/73 Pulse Oximetry 97 98 95 07/07/18 09:00 09/27/17 09:05 09/27/17 09:15 Temperature 97.6 F Pulse Rate 95 H 91 H Respiratory Rate 16 Blood Pressure 113/69 120/73 Pulse Oximetry 99 97 95 09/27/17 09:20 09/27/17 11:21 Temperature 98.1 F Pulse Rate 78 Respiratory Rate 19 Blood Pressure 142/87 H Pulse Oximetry 95 97 Intake & Output 09/26/17 09/27/17 09/27/17 18:59 06:59 18:59 Intake Total 250 / 250 Balance 250 / 250 Weight 139 lb 138 lb 15.67 oz Intake: Anesthesia Amount 250 / 250 Other: # Voids 1 Results Procedures completed during hospitalization: EGD with dilation-09/27/2017-performed by Dr. Alonzo Pending studies at discharge: Pending at discharge 09/27/17 Surgical [PTH] Routine Urine culture Labs on day of discharge: Labs from last 24 hours 09/26/17 09/26/17 09/26/17 16:57 15:50 15:50 WBC RBC Hgb Hct MCV MCH MCHC RDW Plt Count MPV Neut % (Auto) Lymph % (Auto) [place] % (Auto) Eos % (Auto) Baso % (Auto) Neut # (Auto) Lymph # (Auto) [place] # (Auto) Eos # (Auto) Baso # (Auto) WBC Differential Differential Comment PT 10.4 INR 1.0 APTT 23.8 L Sodium 139 Potassium 4.6 Chloride 103 Carbon Dioxide 26.4 Anion Gap 10 BUN 8 Creatinine 0.80 Estimated GFR 69 L Random Glucose 92 Calcium 9.3 Total Bilirubin 0.9 AST 32 ALT 34 Alkaline Phosphatase 94 Total Protein 7.3 Albumin 3.8 Lipase 78 Urine Color Cheli Urine Clarity Cloudy H Urine pH 6.0 Ur Specific [place] 1.024 Urine Protein 30 H Urine Glucose (UA) Negative Urine Ketones 20 Urine Occult Blood Negative Urine Nitrate Negative Urine Bilirubin Negative Urine Urobilinogen 2.0 H Ur Leukocyte Esterase Moderate H Urine RBC 8 H Urine WBC 102 H Ur Squamous Epith Cells 10 Ur Transition Epith Cell 4 Urine Bacteria Few H Hyaline Casts 36 Urine Mucus Many H Micro UA Comment Culture indicated Urine Culture Comments Culture indicated 09/26/17 15:50 WBC 5.1 RBC 4.31 Hgb 14.3 Hct 42.1 MCV 97.7 MCH 33.3 MCHC 34.0 RDW 13.0 Plt Count 189 MPV 10.3 Neut % (Auto) 67.5 Lymph % (Auto) 18.2 [place] % (Auto) 12.1 H Eos % (Auto) 0.9 Baso % (Auto) 1.3 Neut # (Auto) 3.4 Lymph # (Auto) 0.9 L [place] # (Auto) 0.6 Eos # (Auto) 0.0 Baso # (Auto) 0.1 WBC Differential . Differential Comment Auto diff final PT INR APTT Sodium Potassium Chloride Carbon Dioxide Anion Gap BUN Creatinine Estimated GFR Random Glucose Calcium Total Bilirubin AST ALT Alkaline Phosphatase Total Protein Albumin Lipase Urine Color Urine Clarity Urine pH Ur Specific [place] Urine Protein Urine Glucose (UA) Urine Ketones Urine Occult Blood Urine Nitrate Urine Bilirubin Urine Urobilinogen Ur Leukocyte Esterase Urine RBC Urine WBC Ur Squamous Epith Cells Ur Transition Epith Cell Urine Bacteria Hyaline Casts Urine Mucus Micro UA Comment Urine Culture Comments - Impressions ITS Impressions Chest X-Ray 09/26/17 15:37 CONCLUSION: No acute intrathoracic disease. No new or significant changes compared to the prior study. Discharge Plan - Discharge Disposition Patient Disposition: 01 Discharge Home - Discharge Condition Condition: Good - Discharge Order Discharge Orders: Discharge Order (Routine); Ordered 09/27/17 Ordered By: Roc Monroe Gastroenterology Clear for Discharge (Routine); Ordered 09/27/17 Ordered By: Kaveh Alonzo - Discharge Details Anticipated Discharge Date: 09/27/17 Discharge Comment: May discharge home after lunch if tolerates soft diet - Physicians Team Primary Care Provider: Roc Monroe Attending Provider: Roc Monroe Other Providers: Federico Nelson MD
== END 2017-09-27 04:10 | disposition home or self-care (01) ==
LOC: NEPFCDU 12:14 → NEPE 12:14 → NEDA 12:14 → NEPFCDU 16:39
PROVIDERS: ADMIT Family Medicine; ATTEND Family Medicine